=== PATIENT | male | born 1935 | race Caucasian/White ===

== ENCOUNTER → 2018-03-03 | Outpatient (CLI) | payer OTHER | LOC: FCPNEURO 21:00 | PROVIDERS: ATTEND Psychiatry & Neurology Sleep Medicine | DX: G47.33 Obstructive sleep apnea (adult) (pediatric) (principal) ==

== ENCOUNTER 2018-04-09 08:48 | Emergency (ER) | payer OTHER ==
[2018-04-09] MEDS ORDERED: ADENOSINE 6 MG/2 ML VIAL ONE (09:08)
--- NOTE | 2018-04-09 09:11 | EDPHY ---
HPI/HX/ROS/PE/MDM Narrative: CHIEF COMPLAINT: Rapid heart rate HPI: The patient is an 82 y/o male with a history of NSTEMI and hypertension complaining of recurrent rapid heart rate and hypotension that began acutely around 08:10 this morning, 1 hour ago, while standing in the shower. He currently feels "woozy," but denies chest pain or dyspnea. He has a history of similar symptoms usually associated with playing hockey, but two weeks ago he developed the same symptoms while showering. He saw a celery tier and was advised to come to the ED if symptoms recurred. He is not on any anticoagulants. He mentions some mild rhinorrhea yesterday, but otherwise denies recent illness or cold symptoms. REVIEW OF SYSTEMS: A comprehensive 10 system review of systems is otherwise negative aside from elements mentioned in the history of present illness. PMH: Sleep apnea, hypertension - Lisinopril, NSTEMI - daily aspirin SOCIAL HISTORY: at bedside. Moved here 4 months ago. Magazine Filler: Dr. Rivero PHYSICAL EXAM: General:Patient is alert, in no acute distress. ENT:Eyes are normal to inspection. ENT inspection normal. Neck: Normal inspection. Full range of motion. Respiratory:No respiratory distress. Breath sounds normal bilaterally. Cardiovascular: Rapid regular rate and rhythm. Strong peripheral pulses. Normal cap refill. Abdomen:The abdomen is nontender to palpation. There are no peritoneal signs. Back: Normal to inspection. No tenderness to palpation. Skin: Normal color. No rash. Warm and dry. Extremities: Normal appearance. Full range of motion. Neuro: Oriented x3. Normal motor function. Normal sensory function. ED Course: This is a healthy 82 y/o male who presents with recurrent rapid heart rate and hypotension. Symptoms have previously occurred with exertion, but this episode today and the prior episode 2 weeks ago occurred while standing in the shower. He is tachycardic, but otherwise has a normal exam. Plan for IV, labs, EKG, rhythm control. The 12 lead EKG was interpreted by myself. SVT rate 141. See hard copy and/or "tracemaster" electronic copy for interpretation. 0908: Had patient perform Valsalva maneuver. HR dropped from 145 to 65. Appears sinus on the monitor. Repeat EKG ordered. Labs unremarkable. TSH pending. Reassessed patient and discussed findings. He is feeling back to baseline and is comfortable returning home. Recommended following up with cardiology early next week. Standard care instructions and return precautions discussed. - Data Points Laboratory Results: Laboratory Results 04/09/18 09:05 04/09/18 09:05 04/09/18 04/09/18 04/09/18 09:13 09:05 09:05 WBC RBC Hgb Hct MCV MCH MCHC RDW Plt Count MPV Neut % (Auto) Lymph % (Auto) Ashley % (Auto) Eos % (Auto) Baso % (Auto) Nucleat RBC Rel Count Absolute Neuts (auto) Absolute Lymphs (auto) Absolute Monos (auto) Absolute Eos (auto) Absolute Basos (auto) Absolute Nucleated RBC Immature Gran % Immature Gran # PT 14.7 SEC SEC (12.0-15.0) INR 1.13 (0.83-1.16) APTT 32.2 SEC SEC (23.0-38.0) Sodium 139 mEq/L mEq/L (135-145) Potassium 4.0 mEq/L mEq/L (3.5-5.2) Chloride 110 mEq/L mEq/L (97-110) Carbon Dioxide 22 mEq/l mEq/l (22-31) Anion Gap 7 mEq/L mEq/L (6-14) BUN 22 mg/dL mg/dL (7-23) Creatinine 1.1 mg/dL mg/dL (0.7-1.3) Estimated GFR > 60 Glucose 108 mg/dL H mg/dL (70-100) Calcium 9.3 mg/dL mg/dL (8.5-10.4) POC Troponin I 0.01 ng/mL ng/mL (0.00-0.08) TSH 0.920 uIU/mL uIU/mL (0.465-4.680) 04/09/18 09:05 WBC 9.47 10^3/uL 10^3/uL (3.80-9.50) RBC 4.69 10^6/uL 10^6/uL (4.40-6.38) Hgb 15.3 g/dL g/dL (13.7-17.5) Hct 45.3 % % (40.0-51.0) MCV 96.6 fL fL (81.5-99.8) MCH 32.6 pg pg (27.9-34.1) MCHC 33.8 g/dL g/dL (32.4-36.7) RDW 13.4 % % (11.5-15.2) Plt Count 225 10^3/uL 10^3/uL (150-400) MPV 11.1 fL fL (8.7-11.7) Neut % (Auto) 59.1 % % (39.3-74.2) Lymph % (Auto) 25.9 % % (15.0-45.0) Ashley % (Auto) 9.5 % % (4.5-13.0) Eos % (Auto) 4.6 % % (0.6-7.6) Baso % (Auto) 0.8 % % (0.3-1.7) Nucleat RBC Rel Count 0.0 % % (0.0-0.2) Absolute Neuts (auto) 5.59 10^3/uL 10^3/uL (1.70-6.50) Absolute Lymphs (auto) 2.45 10^3/uL 10^3/uL (1.00-3.00) Absolute Monos (auto) 0.90 10^3/uL H 10^3/uL (0.30-0.80) Absolute Eos (auto) 0.44 10^3/uL H 10^3/uL (0.03-0.40) Absolute Basos (auto) 0.08 10^3/uL 10^3/uL (0.02-0.10) Absolute Nucleated RBC 0.00 10^3/uL 10^3/uL (0-0.01) Immature Gran % 0.1 % % (0.0-1.1) Immature Gran # 0.01 10^3/uL 10^3/uL (0.00-0.10) PT INR APTT Sodium Potassium Chloride Carbon Dioxide Anion Gap BUN Creatinine Estimated GFR Glucose Calcium POC Troponin I TSH Point of Care Test Results: Chemistry 04/09/18 09:13 POC Troponin I 0.01 ng/mL ng/mL (0.00-0.08) General Time Seen by Provider: 04/09/18 08:54 Initial Vital Signs: Initial Vital Signs Temperature (C) 36.5 C 04/09/18 08:49 Heart Rate 158 H 04/09/18 08:49 Respiratory Rate 18 04/09/18 08:49 Blood Pressure 97/71 L 04/09/18 08:49 O2 Sat (%) 98 04/09/18 08:49 O2 Delivery Mode Room Air Allergies/Adverse Reactions: No Known Allergies Allergy (Unverified 04/09/18 08:52) Home Medications: Medication Instructions Recorded Lisinopril [Zestril 5 mg (*)] 5 mg PO 04/09/18 Departure - Departure Disposition: Home, Routine, Self-Care Clinical Impression: SVT (supraventricular tachycardia) Condition: Good Instructions: Supraventricular Tachycardia (ED) Additional Instructions: Continue taking all medications as directed. Follow up with celery tier on Thursday. I recommend calling today to schedule this appointment. Return to the ED for recurrent symptoms, chest pain, shortness of breath, or other worsening of condition. Referrals: Nathalia Montenegro MD [Primary Care Provider] - As per Instructions Lc Rivero MD [Medical Doctor] - As per Instructions Report Scribed for: Jamie Calderon Report Scribed by: Melva Funes Date of Report: 04/09/18 Time of Report: 09:11 Physician Review and Approval Statement: Portions of this note were transcribed by an ED scribe. I personally performed the history, physical exam, and medical decision making; and confirm the accuracy of the information in the transcribed note.
[2018-04-09 09:20] LABS: PLATELET COUNT 225 10^3/uL (150-400)
[2018-04-09 09:29] LABS: INR 1.13 (0.83-1.16); PROTIME(PATIENT) 14.7 SEC (12.0-15.0)
[2018-04-09 10:14] VITALS: BP 105/61
--- NOTE | 2018-04-09 14:40 | CPEKG ---
Test Reason : OPEN Blood Pressure : / mmHG Vent. Rate : 066 BPM Atrial Rate : 066 BPM P-R Int : 232 ms QRS Dur : 091 ms QT Int : 388 ms P-R-T Axes : 069 015 057 degrees QTc Int : 407 ms Sinus rhythm Prolonged DC interval Probable left atrial enlargement Confirmed by Jamie Calderon ([id number]) on 04/09/2018 2:40:29 PM Referred By: Confirmed By:Jamie Calderon
--- NOTE | 2018-04-09 14:40 | CPEKG ---
Test Reason : OPEN Blood Pressure : / mmHG Vent. Rate : 141 BPM Atrial Rate : 000 BPM P-R Int : 000 ms QRS Dur : 079 ms QT Int : 304 ms P-R-T Axes : 000 046 269 degrees QTc Int : 466 ms Supraventricular tachycardia Repolarization abnormality, prob rate related Confirmed by Jamie Calderon ([id number]) on 04/09/2018 2:40:26 PM Referred By: Confirmed By:Jamie Calderon
== END 2018-04-09 10:11 | disposition home or self-care (01) ==
DX: I47.1 Supraventricular tachycardia (principal); I10 Essential (primary) hypertension; I25.2 Old myocardial infarction; G47.30 Sleep apnea, unspecified; Z79.82 Long term (current) use of aspirin; Z79.899 Other long term (current) drug therapy
CPT/HCPCS: 84484-ER; J0153